=== PATIENT | male | born 1940 | race Caucasian/White ===

== ENCOUNTER 2021-03-11 17:24 | Inpatient (IN) | payer MEDICARE ==
[~2021-03-11] VITALS: Ht 182.9 cm; Wt 77.0 kg
[2021-03-11] MEDS ORDERED: DEXTROSE 50%-WATER 25 GM/50 ML SYRINGE IVP ONE (18:00)
[2021-03-11 18:12] LABS: GLUCOSE,POINT OF CARE 70 MG/DL (70-110)
[2021-03-11 18:24] LABS: HEMATOCRIT 35.8 % (41-53); MEAN CORPUSCULAR HEMOGLOBIN 32.7 pg (26.0-34.0); MEAN CORPUSCULAR HGB CONC 33.6 G/dL (31.0-37.0); MEAN CORPUSCULAR VOLUME 97 fL (80-100); PLATELET COUNT (AUTO) 276 K/uL (150-450); RED BLOOD CELL COUNT(AUTO) 3.69 MIL/uL (4.50-5.90); RED CELL DISTRIBUTION WIDTH 14.3 % (11.5-14.5)
[2021-03-11 18:32] LABS: CALCIUM, TOTAL 8.6 mg/dL (8.8-10.5); CREATININE 1.29 mg/dL (0.60-1.30); POTASSIUM 4.2 mmol/L (3.5-5.1)
[2021-03-11 18:35] LABS: INR 1.1 (0.9-1.1); PROTHROMBIN TIME 11.8 SEC (9.4-11.6)
[2021-03-11 18:37] LABS: ALBUMIN 2.4 g/dL (3.4-5.0); BAND NEUTROPHILS % (MANUAL) 3 % (0-5); BILIRUBIN,TOTAL 0.5 mg/dL (0.1-1.0); EOSINOPHILS % (MANUAL) 27 % (1-6); LYMPHOCYTES % (MANUAL) 11 % (22-44); MONOCYTES % (MANUAL) 6 % (2-9); SEGMENTED NEUTROPHILS % 53 % (40-70); TOTAL PROTEIN, SERUM 6.3 g/dL (6.4-8.2)
[2021-03-11] MEDS ORDERED: IOHEXOL 350 MG/ML 100 ML VIAL ONE (19:09)
[2021-03-11] MEDS ORDERED: SODIUM CHLORIDE 0.9% 100 ML ONE (19:09)
[2021-03-11 20:11] LABS: GLUCOSE,POINT OF CARE 104 MG/DL (70-110)
[2021-03-11] MEDS ORDERED: ACETAMINOPHEN 325 MG TABLET PO PRN (22:45)
[2021-03-11] MEDS ORDERED: ONDANSETRON HCL 4 MG/2 ML VIAL IVP PRN (22:45)
[2021-03-11] MEDS ORDERED: BISACODYL 10 MG RECTAL RECTAL SUPPOSITORY PR PRN (22:45)
[2021-03-11] MEDS ORDERED: MAGNESIUM HYDROXIDE SUSPENSION 30 ML UDCUP PO PRN (22:45)
[2021-03-11] MEDS ORDERED: HYDROCODONE/ACETAMINOPHEN 5-325 MG TABLET PO PRN (22:45)
[2021-03-12] MEDS: HEPARIN SODIUM,PORCINE 5,000 UNITS/ML VIAL SQ SCH ×3 (01:16→18:39)
[2021-03-12 07:53] LABS: CALCIUM, TOTAL 8.3 mg/dL (8.8-10.5); CREATININE 1.18 mg/dL (0.60-1.30)
[2021-03-12 07:55] LABS: BASOPHILS % (AUTO) 0.5 % (0.0-2.0); HEMATOCRIT 35.1 % (41-53); HEMOGLOBIN 11.7 g/dL (13.5-17.5); LYMPHOCYTES # (AUTO) 0.9 K/uL (1.0-4.8); LYMPHOCYTES % (AUTO) 8.3 % (22.0-44.0); MEAN CORPUSCULAR HEMOGLOBIN 32.5 pg (26.0-34.0); MEAN CORPUSCULAR HGB CONC 33.3 G/dL (31.0-37.0); MEAN CORPUSCULAR VOLUME 98 fL (80-100); MONOCYTES # (AUTO) 0.6 K/uL (0.1-1.0); MONOCYTES % (AUTO) 5.6 % (2.0-9.0); NEUTROPHILS # (AUTO) 6.2 K/uL (1.8-7.7); NEUTROPHILS % (AUTO) 56.4 % (40.0-70.0); PLATELET COUNT (AUTO) 272 K/uL (150-450); RED CELL DISTRIBUTION WIDTH 14.6 % (11.5-14.5)
[2021-03-12 08:03] LABS: EOSINOPHILS % (AUTO) 29.2 % (1.0-6.0)
[2021-03-12 09:06] LABS: COVID AG,FIA SOURCE NASOPHARYNGEAL
[2021-03-12] MEDS: DOCUSATE SODIUM 100 MG CAPSULE PO SCH ×2 (12:12→20:59)
[2021-03-12] MEDS: PANTOPRAZOLE SODIUM 40 MG DR TABLET PO SCH (12:12)
[2021-03-12] MEDS: MORPHINE SULFATE 2 MG/ML SYRINGE IVP PRN (14:59)
[2021-03-12] MEDS: ZOLPIDEM TARTRATE 5 MG TABLET PO PRN (21:31)
[2021-03-13] MEDS: HEPARIN SODIUM,PORCINE 5,000 UNITS/ML VIAL SQ SCH ×4 (00:53→23:03)
[2021-03-13] MEDS: ZOLPIDEM TARTRATE 5 MG TABLET PO PRN (03:02)
[2021-03-13] MEDS ORDERED: ACET-2247 PO (05:45)
[2021-03-13] MEDS ORDERED: METO25XL PO (05:46)
[2021-03-13] MEDS ORDERED: TRIA15CR49 TP (05:46)
[2021-03-13] MEDS ORDERED: FENO48TA20 PO (05:46)
[2021-03-13] MEDS ORDERED: ASPI-1444 PO (05:46)
[2021-03-13] MEDS ORDERED: ALLO-45 PO (05:46)
[2021-03-13] MEDS ORDERED: SENN176S PO (05:46)
[2021-03-13] MEDS ORDERED: DOCU-270 PO (05:46)
[2021-03-13] MEDS ORDERED: CLOP75TA60 PO (05:46)
[2021-03-13] MEDS ORDERED: DONE5TAB5 PO (05:46)
[2021-03-13] MEDS ORDERED: VIT1TAB.9 PO (05:46)
[2021-03-13] MEDS ORDERED: POTA15TA11 PO (05:46)
[2021-03-13] MEDS ORDERED: SIMV-259 PO (05:46)
[2021-03-13] MEDS ORDERED: HALO2 PO (05:46)
[2021-03-13] MEDS ORDERED: VERA240T96 PO (05:46)
[2021-03-13 06:52] LABS: BASOPHILS % (AUTO) 0.3 % (0.0-2.0); HEMATOCRIT 35.6 % (41-53); LYMPHOCYTES # (AUTO) 0.9 K/uL (1.0-4.8); LYMPHOCYTES % (AUTO) 8.9 % (22.0-44.0); MEAN CORPUSCULAR HEMOGLOBIN 32.5 pg (26.0-34.0); MEAN CORPUSCULAR HGB CONC 33.5 G/dL (31.0-37.0); MEAN CORPUSCULAR VOLUME 97 fL (80-100); MONOCYTES # (AUTO) 0.5 K/uL (0.1-1.0); MONOCYTES % (AUTO) 5.2 % (2.0-9.0); NEUTROPHILS # (AUTO) 6.8 K/uL (1.8-7.7); NEUTROPHILS % (AUTO) 64.8 % (40.0-70.0); PLATELET COUNT (AUTO) 272 K/uL (150-450); RED BLOOD CELL COUNT(AUTO) 3.67 MIL/uL (4.50-5.90); RED CELL DISTRIBUTION WIDTH 14.7 % (11.5-14.5)
[2021-03-13 07:02] LABS: CALCIUM, TOTAL 8.3 mg/dL (8.8-10.5); CREATININE 1.26 mg/dL (0.60-1.30); POTASSIUM 4.1 mmol/L (3.5-5.1)
[2021-03-13 07:18] LABS: EOSINOPHILS % (AUTO) 20.8 % (1.0-6.0)
[2021-03-13] MEDS: DOCUSATE SODIUM 100 MG CAPSULE PO SCH ×2 (08:22→20:24)
[2021-03-13] MEDS: PANTOPRAZOLE SODIUM 40 MG DR TABLET PO SCH (08:22)
[2021-03-13 08:28] LABS: THYROID STIMULATING HORMONE 1.61 uIU/mL (0.36-3.74)
[2021-03-13] MEDS: MORPHINE SULFATE 2 MG/ML SYRINGE IVP PRN (10:19)
[2021-03-13 20:00] VITALS: BP 117/66
[2021-03-13 23:20] VITALS: BP 136/65
[2021-03-14 04:30] VITALS: BP 106/56
[2021-03-14 07:22] VITALS: BP 111/60
[2021-03-14 07:43] LABS: CALCIUM, TOTAL 8.6 mg/dL (8.8-10.5); CREATININE 1.32 mg/dL (0.60-1.30); POTASSIUM 3.9 mmol/L (3.5-5.1)
[2021-03-14] MEDS: HEPARIN SODIUM,PORCINE 5,000 UNITS/ML VIAL SQ SCH ×3 (08:00→22:54)
[2021-03-14 08:29] LABS: BASOPHILS % (AUTO) 0.6 % (0.0-2.0); EOSINOPHILS % (AUTO) 8.6 % (1.0-6.0); HEMATOCRIT 35.7 % (41-53); HEMOGLOBIN 11.8 g/dL (13.5-17.5); LYMPHOCYTES # (AUTO) 0.6 K/uL (1.0-4.8); LYMPHOCYTES % (AUTO) 6.7 % (22.0-44.0); MEAN CORPUSCULAR HEMOGLOBIN 32.7 pg (26.0-34.0); MEAN CORPUSCULAR HGB CONC 33.1 G/dL (31.0-37.0); MEAN CORPUSCULAR VOLUME 99 fL (80-100); MONOCYTES # (AUTO) 0.4 K/uL (0.1-1.0); MONOCYTES % (AUTO) 4.7 % (2.0-9.0); NEUTROPHILS # (AUTO) 6.9 K/uL (1.8-7.7); NEUTROPHILS % (AUTO) 79.4 % (40.0-70.0); PLATELET COUNT (AUTO) 253 K/uL (150-450); RED BLOOD CELL COUNT(AUTO) 3.61 MIL/uL (4.50-5.90); RED CELL DISTRIBUTION WIDTH 14.9 % (11.5-14.5)
[2021-03-14] MEDS: DOCUSATE SODIUM 100 MG CAPSULE PO SCH ×2 (08:33→21:30)
[2021-03-14] MEDS: PANTOPRAZOLE SODIUM 40 MG DR TABLET PO SCH (08:33)
[2021-03-14 11:16] VITALS: BP 140/96
[2021-03-14 15:53] VITALS: BP 130/61
[2021-03-14 19:28] VITALS: BP 126/64
[2021-03-14] MEDS: MORPHINE SULFATE 2 MG/ML SYRINGE IVP PRN (21:30)
[2021-03-14 23:06] VITALS: BP 133/70
[2021-03-15 04:26] VITALS: BP 120/60
[2021-03-15 07:45] VITALS: BP 96/76
[2021-03-15] MEDS: DOCUSATE SODIUM 100 MG CAPSULE PO SCH (08:51)
[2021-03-15] MEDS: HEPARIN SODIUM,PORCINE 5,000 UNITS/ML VIAL SQ SCH (08:51)
[2021-03-15] MEDS: PANTOPRAZOLE SODIUM 40 MG DR TABLET PO SCH (08:51)
[2021-03-15 12:05] VITALS: BP 127/72
[2021-03-15 17:03] VITALS: BP 138/79
== END 2021-03-15 17:15 | DRG 74 ==
LOC: EMS 17:26 → 5S 03-13 17:43
PROVIDERS: ADMIT Internal Medicine; ATTEND Internal Medicine
DX: G90.8 Other disorders of autonomic nervous system (principal); E44.0 Moderate protein-calorie malnutrition; D64.9 Anemia, unspecified; E78.5 Hyperlipidemia, unspecified; F02.80 Dementia in other diseases classified elsewhere, unspecified severity, without behavioral disturbance, psychotic disturbance, mood disturbance, and anxiety; G30.9 Alzheimer's disease, unspecified; I10 Essential (primary) hypertension; E78.00 Pure hypercholesterolemia, unspecified; Z20.822 Contact with and (suspected) exposure to COVID-19; Z86.73 Personal history of transient ischemic attack (TIA), and cerebral infarction without residual deficits; Z68.23 Body mass index [BMI] 23.0-23.9, adult; Z79.899 Other long term (current) drug therapy; Z79.02 Long term (current) use of antithrombotics/antiplatelets; Z79.82 Long term (current) use of aspirin
CPT/HCPCS: 70450; 71045; 72125; 72131; 74177; 80048; 80053; 82948; 82962; 84443; 84484; 85025; 85610; 87081; 93005; 97116; 97162; 97530; 99285; J1644; J2270; J7050; Q9967; 36415-L1; 36415-TC

== ENCOUNTER 2021-06-08 06:58 | Emergency (ER) | payer MEDICARE ==
[~2021-06-08] VITALS: Ht 182.9 cm; Wt 68.5 kg
[~2021-06-08 06:58] MED LIST: ACET-2247 PO; ALLO-45 PO; ASPI-1444 PO; CLOP75TA60 PO; DOCU-385 PO; DONE-52 PO; FENO48TA12 PO; HALO2 PO; METO25XL PO; POTA15TA11 PO; SENN176S PO; SIMV-259 PO; TRIA15CR49 TP; VERA240T96 PO; VIT1TAB.9 PO
[2021-06-08] MEDS ORDERED: PERTUSS(ACELL),DIPH,TET VAC/PF 0.5 ML SYRINGE IM. ONE (07:15)
[2021-06-08] MEDS ORDERED: BACITRACIN 0.9 GM PACKET OINTMENT TP ONE (07:15)
[2021-06-08 07:30] LABS: BASOPHILS % (AUTO) 0.6 % (0.0-2.0); EOSINOPHILS % (AUTO) 27.7 % (1.0-6.0); HEMOGLOBIN 11.9 g/dL (13.5-17.5); LYMPHOCYTES # (AUTO) 0.9 K/uL (1.0-4.8); LYMPHOCYTES % (AUTO) 10.6 % (22.0-44.0); MEAN CORPUSCULAR HGB CONC 33.2 G/dL (31.0-37.0); MEAN CORPUSCULAR VOLUME 96 fL (80-100); MONOCYTES # (AUTO) 0.5 K/uL (0.1-1.0); MONOCYTES % (AUTO) 5.8 % (2.0-9.0); NEUTROPHILS # (AUTO) 4.4 K/uL (1.8-7.7); NEUTROPHILS % (AUTO) 55.3 % (40.0-70.0); PLATELET COUNT (AUTO) 244 K/uL (150-450); RED BLOOD CELL COUNT(AUTO) 3.73 MIL/uL (4.50-5.90); RED CELL DISTRIBUTION WIDTH 14.2 % (11.5-14.5)
[2021-06-08 07:38] LABS: ANION GAP 7 mmol/L (8-16); CALCIUM, TOTAL 8.9 mg/dL (8.8-10.5); CARBON DIOXIDE 28 mmol/L (22-29); CHLORIDE 106 mmol/L (98-107); CREATININE 0.82 mg/dL (0.60-1.30); GLOMERULAR FILTR. RATE CALC > 60 mL/min (>60); GLUCOSE,RANDOM 84 mg/dL (70-110); POTASSIUM 4.2 mmol/L (3.5-5.1); SODIUM SERUM 141 mmol/L (136-145); UREA NITROGEN, BLOOD 18 mg/dL (7-18)
[2021-06-08 07:43] LABS: B-TYPE NATRIURETIC PEPTIDE 215 pg/mL (0-100)
[2021-06-08 07:44] LABS: ALANINE AMINOTRANSFERASE 17 U/L (12-78); ALBUMIN 2.6 g/dL (3.4-5.0); ALKALINE PHOSPHATASE 84 U/L (46-116); ASPARTATE AMINOTRANSFERASE 21 U/L (15-37); BILIRUBIN,TOTAL 0.4 mg/dL (0.1-1.0); CREATINE KINASE, TOTAL ONLY 58 U/L (39-308); TOTAL PROTEIN, SERUM 6.9 g/dL (6.4-8.2)
[2021-06-08 09:00] VITALS: BP 113/67
== END 2021-06-08 10:40 | disposition home or self-care (01) ==
LOC: EMS 07:00
DX: S01.01XA Laceration without foreign body of scalp, initial encounter (principal); E78.00 Pure hypercholesterolemia, unspecified; I10 Essential (primary) hypertension; Z86.73 Personal history of transient ischemic attack (TIA), and cerebral infarction without residual deficits; W19.XXXA Unspecified fall, initial encounter; Y93.89 Activity, other specified; Y92.89 Other specified places as the place of occurrence of the external cause; Y99.8 Other external cause status
CPT/HCPCS: 70450; 71045; 72125; 80053; 82550; 83880; 84484; 85025; 90471; 90715; 93005; 99285; 36415-L1; 36415-TC